=== PATIENT | male | born 1970 | race Caucasian/White ===

== ENCOUNTER 2024-04-23 11:57 | Emergency (ER) | payer BC, SELFPAY ==
[2024-04-23] VITALS (16 sets, daily range): BP systolic 126–154; BP diastolic 97–116; PULSE 87–104; RESP 20; TEMP 36.8; O2SAT 96–99
--- NOTE | 2024-04-23 12:21 | ED_ITS ---
HPI - Chest Pain General Time Seen by Provider: 12:21 Date Seen: 04/23/24 Chief Complaint: Chest Pain Stated Complaint: Chest pain, dizzy, nausea, high heart rate Time Seen by Provider: 04/23/24 12:20 Source: patient and RN notes reviewed Mode of arrival: ambulatory Limitations: no limitations History of Present Illness HPI narrative: This 53-year-old male is coming in with chest discomfort for few hours now. It started while at work. He feels more as a pressure in his chest, more to the left side. It is deeper. While at work he had some spells that were sharper in nature, made him feel lightheaded. When he had the sharp pains, felt lightheaded with standing as well. He was nauseated this morning prior to the onset of these symptoms. Denies any history of GI symptoms. He is no longer nauseated, had no vomiting, no abdominal pain. He has not been sick with anything, no cough or cold symptoms. There is no family history of heart disease that he is aware of but he does not know his dad's history. There is diabetes on his mom's side. He has not noted anything to make this worse or better. There is no respiratory change with it. Related Data Home Medications ?Medication ?Instructions ?Recorded ?Confirmed No Known Home Medications 04/23/24 04/23/24 Allergies Allergy/AdvReac Type Severity Reaction Status Date / Time No Known Drug Allergies Allergy Verified 04/23/24 12:10 Exam Const Vital Signs, click to edit/add: Vital Signs - 24 hr 04/23/24 12:07 04/23/24 12:38 04/23/24 12:47 Temperature 98.2 F Pulse Rate 87 Pulse Rate [Pulse Oximeter] 102 H Respiratory Rate 20 Blood Pressure Blood Pressure [Right Upper Arm] 154/100 H Pulse Oximetry 98 96 98 Oxygen Delivery Method Room Air 04/23/24 12:50 04/23/24 13:00 04/23/24 13:02 Temperature Pulse Rate 98 99 100 Pulse Rate [Pulse Oximeter] Respiratory Rate Blood Pressure 147/105 H 146/101 H Blood Pressure [Right Upper Arm] Pulse Oximetry 96 98 97 Oxygen Delivery Method 04/23/24 13:15 04/23/24 13:30 04/23/24 13:32 Temperature Pulse Rate 96 104 H 94 Pulse Rate [Pulse Oximeter] Respiratory Rate Blood Pressure 126/116 H Blood Pressure [Right Upper Arm] Pulse Oximetry 96 97 96 Oxygen Delivery Method 04/23/24 13:45 04/23/24 14:00 04/23/24 14:02 Temperature Pulse Rate 90 90 88 Pulse Rate [Pulse Oximeter] Respiratory Rate Blood Pressure 126/97 H Blood Pressure [Right Upper Arm] Pulse Oximetry 96 97 99 Oxygen Delivery Method 04/23/24 14:15 Temperature Pulse Rate 91 Pulse Rate [Pulse Oximeter] Respiratory Rate Blood Pressure Blood Pressure [Right Upper Arm] Pulse Oximetry 97 Oxygen Delivery Method Course Course ED Course: Reviewed with Talha that we will look at a chest x-ray, look at heart enzymes, full complement of labs. Certainly ischemic disease is a possibility for him, will give him 324 mg of aspirin. Will also do a screening D-dimer, he understands if it is elevated will need CT imaging. Will be monitored on pulse oximetry as well as cardiac monitoring. He is currently stable. Reevaluation(s) Time of Reevaluation #1: 13:40 Reevaluation #1: Reviewed with Feliciano that his initial labs are all reassuring, negative troponins. He has had symptoms which would be at a 4 hour window now, will do repeat troponin and EKG. His D-dimer is normal. He actually states he is feeling better. He had symptoms for a couple hours before coming in, they have apparently resolved while here, he has only received aspirin. Time of Reevaluation #2: 14:40 Reevaluation #2: Reviewed with patient his follow-up troponin and EKG are not showing any evidence of ischemic disease. He is feeling better. Pulses back down to normal. Differential is anxiety, ischemic disease without infarct or injury, gastroesophageal disease, musculoskeletal is also possible. Does tell me now that he has been having more heartburn. Did review with him that he should follow up with his primary. This time he has no symptoms, will discharge to further outpatient follow-up. Vital Signs Vital signs: Initial Vital Signs Temperature 98.2 F 04/23/24 12:07 Temperature Source Temporal Artery Scan 04/23/24 12:07 Pulse Rate 102 H 04/23/24 12:07 Respiratory Rate 20 04/23/24 12:07 Blood Pressure 154/100 H 04/23/24 12:07 Blood Pressure Mean 118 H 04/23/24 12:07 Blood Pressure Position Sitting 04/23/24 12:07 Pulse Oximetry 98 04/23/24 12:07 Oxygen Delivery Method Room Air 04/23/24 12:07 Vital Signs Temperature 98.2 F 04/23/24 12:07 Pulse Rate 102 H 04/23/24 12:07 Respiratory Rate 20 04/23/24 12:07 Blood Pressure 154/100 H 04/23/24 12:07 Pulse Oximetry 98 04/23/24 12:07 Oxygen Delivery Method Room Air 04/23/24 12:07 Temperature 98.2 F 04/23/24 12:07 Pulse Rate 91 04/23/24 14:15 Respiratory Rate 20 04/23/24 12:07 Blood Pressure 126/97 H 04/23/24 14:02 Pulse Oximetry 97 04/23/24 14:15 Oxygen Delivery Method Room Air 04/23/24 12:07 Medications Administered Medications: Discontinued Medications Generic Name Dose Route Start Last Admin Trade Name Freq PRN Reason Stop Dose Admin Aspirin 324 mg 04/23/24 12:39 04/23/24 12:50 Aspirin 81 Mg Tab.Chew PO 04/23/24 12:40 324 mg ONCE ONE Administration MDM - Chest Pain Lab Data Attestation: I reviewed the patient's lab results. Labs: Lab Results 04/23/24 04/23/24 04/23/24 Range/Units 12:27 12:39 12:49 WBC 11.07 H (4.50-11.00) K/uL RBC 5.74 (4.30-5.90) m/uL Hgb 17.4 (13.5-17.5) gm/dL Hct 50.6 (37.0-53.0) % MCV 88 (80-100) fL MCH 30 (26-34) pg MCHC 34 (32-36) gm/dL RDW Coeff of Boris 12.1 (11.5-15.5) % Plt Count 304 (140-440) K/uL Neut % (Auto) 73.1 H (42.0-72.0) % Lymph % (Auto) 20.1 (20-44) % [place] % (Auto) 6.2 (0.0-11.0) % Eos % (Auto) 0.2 (0.0-7.0) % Baso % (Auto) 0.3 (0.0-3.0) % Neut # (Auto) 8.10 H (1.7-7.0) K/uL Lymph # (Auto) 2.20 (0.90-2.90) K/uL [place] # (Auto) 0.70 (0.00-0.90) K/UL Eos # (Auto) 0.00 (0.00-0.50) K/uL Baso # (Auto) 0.00 (0.00-0.30) K/uL Abs Immat Gran (auto) 0.00 (0.00-0.30) K/uL Imm/Tot Granulo (auto) 0.1 % ESR 3 (2-15) mm/hr D-Dimer Quant (PE/DVT) < 0.27 (0.00-0.50) ug/ml Sodium 139 (135-149) mmol/L Potassium 3.5 L (3.6-5.1) mmol/L Chloride 107 (96-114) mmol/L Carbon Dioxide 20 (20-32) mmol/L Anion Gap 12 (7-15) mEq/L BUN 13 (7-30) mg/dL Creatinine 0.8 (0.5-1.5) mg/dL Estimated GFR 106 ml/min Glucose 98 (60-115) mg/dL Lactate 1.8 (0.5-1.9) mmol/L Calcium 10.0 (8.4-10.6) mg/dL Magnesium 2.1 (1.5-2.6) mg/dL Total Bilirubin 0.8 (0.1-1.5) mg/dL Direct Bilirubin 0.3 (0.0-0.5) mg/dL AST 29 (12-35) U/L ALT 30 (4-50) U/L Alkaline Phosphatase 102 (40-150) U/L Troponin I < 0.01 L (0.01-0.04) ng/mL C-Reactive Protein < 0.5 L (0.5-1.0) mg/dL NT-Pro-B Natriuret Pep 27 pg/mL Total Protein 8.2 (6.0-8.3) g/dL Albumin 5.1 H (3.3-5.0) g/dL Lipase 116 (23-300) U/L SARS-CoV-2 (PCR) Negative SARS-CoV-2 (Negative) Influenza Type A (PCR) Negative PCR FLU A (Negative) Influenza Type B (PCR) Negative PCR FLU B (Negative) RSV (PCR) Negative PCR RSV (Negative) POC Troponin I 0.00 L (0.01-0.04) ng/ml 04/23/24 Range/Units 13:37 WBC (4.50-11.00) K/uL RBC (4.30-5.90) m/uL Hgb (13.5-17.5) gm/dL Hct (37.0-53.0) % MCV (80-100) fL MCH (26-34) pg MCHC (32-36) gm/dL RDW Coeff of Boris (11.5-15.5) % Plt Count (140-440) K/uL Neut % (Auto) (42.0-72.0) % Lymph % (Auto) (20-44) % [place] % (Auto) (0.0-11.0) % Eos % (Auto) (0.0-7.0) % Baso % (Auto) (0.0-3.0) % Neut # (Auto) (1.7-7.0) K/uL Lymph # (Auto) (0.90-2.90) K/uL [place] # (Auto) (0.00-0.90) K/UL Eos # (Auto) (0.00-0.50) K/uL Baso # (Auto) (0.00-0.30) K/uL Abs Immat Gran (auto) (0.00-0.30) K/uL Imm/Tot Granulo (auto) % ESR (2-15) mm/hr D-Dimer Quant (PE/DVT) (0.00-0.50) ug/ml Sodium (135-149) mmol/L Potassium (3.6-5.1) mmol/L Chloride (96-114) mmol/L Carbon Dioxide (20-32) mmol/L Anion Gap (7-15) mEq/L BUN (7-30) mg/dL Creatinine (0.5-1.5) mg/dL Estimated GFR ml/min Glucose (60-115) mg/dL Lactate (0.5-1.9) mmol/L Calcium (8.4-10.6) mg/dL Magnesium (1.5-2.6) mg/dL Total Bilirubin (0.1-1.5) mg/dL Direct Bilirubin (0.0-0.5) mg/dL AST (12-35) U/L ALT (4-50) U/L Alkaline Phosphatase (40-150) U/L Troponin I (0.01-0.04) ng/mL C-Reactive Protein (0.5-1.0) mg/dL NT-Pro-B Natriuret Pep pg/mL Total Protein (6.0-8.3) g/dL Albumin (3.3-5.0) g/dL Lipase (23-300) U/L SARS-CoV-2 (PCR) (Negative) Influenza Type A (PCR) (Negative) Influenza Type B (PCR) (Negative) RSV (PCR) (Negative) POC Troponin I 0.01 (0.01-0.04) ng/ml ECG Data Attestation: I personally reviewed and interpreted this ECG as follows: (Sinus tachycardia, 102 beats per minute. No ischemic change, no infarct.) ECG interpretation date: 04/23/24 ECG interpretation time: 12:21 Prior ECG tracings: not available for review Discharge Plan Discharge Clinical Impression: Chest pain Qualifiers: Chest pain type: unspecified Qualified Code(s): R07.9 - Chest pain, unspecified Patient Disposition: Home, Self-Care Condition: Stable Instructions: Chest Pain (ED), GERD (Gastroesophageal Reflux Disease) (ED) Additional Instructions: Need to schedule clinic follow-up with your primary care provider. Please discuss having cardiac stress testing done. Do also recommend taking an 81 mg aspirin until your physician or primary provider tells you otherwise. Need to consider testing for H pylori given your increased reflux, this can happen through clinic. Can try [id number] omeprazole in the meantime and see if that decreases her symptoms. Review handouts. In the interim, if you have increasing chest symptoms, have further concerns or changes in your symptoms, do recommend re-evaluation. Activity Level: Activity as Tolerated Prescriptions: No Action No Known Home Medications Follow Up/Referrals: John Rizvi MD [Staff Physician] - Stand Alone Forms: [employer] Instructions
--- NOTE | 2024-04-23 12:38 | CRLHL7_ITS ---
For Patients: As a result of the Century Cures Act, medical imaging exams and procedure reports are released immediately into your electronic medical record. You may view this report before your referring provider. If you have questions, please contact your health care provider. Indication: Chest pain Technique: Chest 1 view Comparison: None Findings/Impression: Cardiovascular and mediastinum: Heart size and vasculature are normal in caliber and appearance. Lungs and pleural space: No pleural effusion or pneumothorax. Trace right perihilar discoid atelectasis. Low lung volumes. Bones and soft tissues: No acute findings. Dictated by Puma Vora MD @ 04/23/2024 1:36:31 PM (Electronically Signed)
[2024-04-23 12:44] LABS: Lactate* 1.8 mmol/L (0.5-1.9)
[2024-04-23 12:48] LABS: Basophils Percent Auto 0.3 % (0.0-3.0); Eosinophils Percent Auto 0.2 % (0.0-7.0); Hematocrit 50.6 % (37.0-53.0); Hemoglobin* 17.4 gm/dL (13.5-17.5); Immature Granulocytes Pct Auto 0.1 %; Lymphocytes Percent Auto 20.1 % (20-44); Mean Corpuscular HGB Conc 34 gm/dL (32-36); Mean Corpuscular Hemoglobin 30 pg (26-34); Mean Corpuscular Volume 88 fL (80-100); Monocytes Percent Auto 6.2 % (0.0-11.0); Neutrophils Percent Auto 73.1 % (42.0-72.0); Platelet Count* 304 K/uL (140-440); RDW Coefficient of Variation % 12.1 % (11.5-15.5); Red Blood Count 5.74 m/uL (4.30-5.90); White Blood Count* 11.07 K/uL (4.50-11.00)
[2024-04-23 12:49] LABS: Slide Review Reflex No
[2024-04-23] MEDS: ASPIRIN 81 MG TAB.CHEW 324 MG PO (12:50)
[2024-04-23 13:03] LABS: Albumin* 5.1 g/dL (3.3-5.0); Chloride* 107 mmol/L (96-114); Sodium* 139 mmol/L (135-149)
[2024-04-23 13:04] LABS: Potassium* 3.5 mmol/L (3.6-5.1)
[2024-04-23 13:05] LABS: Creatinine* 0.8 mg/dL (0.5-1.5); Estimated Glomerular Filt Rate 106 ml/min
[2024-04-23 13:06] LABS: Alanine Aminotransferase* 30 U/L (4-50); Alkaline Phosphatase* 102 U/L (40-150); Anion Gap 12 mEq/L (7-15); Aspartate Amino Transferase* 29 U/L (12-35); Bilirubin Direct* 0.3 mg/dL (0.0-0.5); Bilirubin Total* 0.8 mg/dL (0.1-1.5); Blood Urea Nitrogen* 13 mg/dL (7-30); Carbon Dioxide* 20 mmol/L (20-32); Glucose* 98 mg/dL (60-115); Lipase* 116 U/L (23-300); Total Protein* 8.2 g/dL (6.0-8.3)
[2024-04-23 13:07] LABS: Magnesium* 2.1 mg/dL (1.5-2.6)
[2024-04-23 13:09] LABS: C Reactive Protein* < 0.5 mg/dL (0.5-1.0)
[2024-04-23 13:16] LABS: NT Pro B Type NatriureticPept* 27 pg/mL
[2024-04-23 13:19] LABS: D Dimer Quantitative* < 0.27 ug/ml (0.00-0.50); Troponin I* < 0.01 ng/mL (0.01-0.04)
[2024-04-23 13:34] LABS: PCR FLU A Negative PCR FLU A (Negative); PCR FLU B Negative PCR FLU B (Negative); PCR RSV Negative PCR RSV (Negative); SARS PCR* Negative SARS-CoV-2 (Negative)
[2024-04-23 13:42] LABS: Erythrocyte SedimentationRate* 3 mm/hr (2-15)
[2024-04-23 14:12] LABS: Troponin, Point-of-Care* 0.01 ng/ml (0.01-0.04)
== END 2024-04-23 14:50 | disposition home or self-care (01) ==
PROVIDERS: Emergency Provider Family Medicine; PCP Physician Assistant Medical
DX: R07.9 Chest pain, unspecified (principal)
CPT/HCPCS: 36415; 71045; 80053; 82248; 83605; 83690; 83735; 83880; 84484; 85025; 85379; 85651; 86140; 87631; 93005; 94761; 99284; 99285; A9270